=== PATIENT | female | born 1965 | race Caucasian/White ===

== ENCOUNTER 2017-10-06 10:22 | Emergency (ER) | payer BC ==
[2017-10-06 11:27] VITALS: BP 140/91
--- NOTE | 2017-10-06 11:56 | UC ---
Ear Complaint HPI - HPI Summary HPI Summary: right ear pain x 4 days no fever, no cold sx right ear is painful to touch, feels swelling, tender to touch , - History of Current Complaint Chief Complaint: UCEar Stated Complaint: RIGHT EAR/JAW PAIN Time Seen by Provider: 10/06/17 11:23 Hx Obtained From: Patient Hx Last Menstrual Period: 2007 Onset/Duration: Gradual Onset, Lasting Days - 4, Still Present Severity Initially: Moderate Severity Currently: Moderate Aggravating Factors: Other - touch Alleviating Factors: Nothing Associated Signs/Symptoms: Positive: Hearing Loss. Negative: Discharge, Foreign Body Sensation, Trauma to Ear, Swelling @, URI Symptoms - Allergies/Home Medications Allergies/Adverse Reactions: Allergies Allergy/AdvReac Type Severity Reaction Status Date / Time Morphine Allergy See Comment Verified 10/06/17 11:28 clorox Allergy Eyes Uncoded 10/06/17 11:28 Itchy/Swollen/Red/Watery environmental Allergy Eyes Uncoded 10/06/17 11:28 Itchy/Swollen/Red/Watery Home Medications: Home Medications 5 Hdp 200 mg PO DAILY 10/06/17 [History Confirmed 10/06/17] Adrenal B 2 cap PO DAILY 10/06/17 [History Confirmed 10/06/17] Cholecalciferol [Vitamin D] 4,000 unit PO DAILY 10/06/17 [History Confirmed ] Hydrochlorothiazide/Lisinopril 1 tab PO QAM 10/06/17 [History Confirmed 10/06/17 ] Levothyroxine TAB* [Synthroid TAB*] 100 mcg PO DAILY 10/06/17 [History Confirmed 10/06/17] Lisdexamfetamine Dimesylate [Vyvanse] 70 mg PO DAILY 10/06/17 [History Confirmed 10/06/17] Vitamin B Complex TAB* [Complex B-100*] 1 tab PO DAILY 10/06/17 [History Confirmed 10/06/17] PMH/Surg Hx/FS Hx/Imm Hx Endocrine History: Hypothyroidism Cardiovascular History: Hypertension - Surgical History Surgical History: Yes Surgery Procedure, Year, and Place: hysterectomy 2006, cholecystectomy, tonsils ; lap band 2009 - Family History Known Family History: Negative: Diabetes - Social History Alcohol Use: Occasionally Substance Use Type: None Smoking Status (MU): Former Smoker Review of Systems Constitutional: Negative Skin: Negative Eyes: Negative ENT: Ear Ache Respiratory: Negative Cardiovascular: Negative Is Patient Immunocompromised?: No All Other Systems Reviewed And Are Negative: Yes Physical Exam Triage Information Reviewed: Yes Appearance: Well-Appearing, No Pain Distress, Well-Nourished Vital Signs: Initial Vital Signs Temp 98.1 F 10/06/17 11:16 Pulse 85 10/06/17 11:16 Resp 18 10/06/17 11:16 BP 140/91 10/06/17 11:16 Vital Signs Reviewed: Yes Eyes: Positive: Conjunctiva Clear ENT: Positive: Normal ENT inspection, Hearing grossly normal, Pharynx normal, TMs normal, Other - right ear canal : + erythema, swollen, tender, + abscess Ear Complaint Course/Dx - Differential Dx/Diagnosis Provider Diagnoses: abscess right ear canal Discharge - Discharge Plan Condition: Stable Disposition: HOME Prescriptions: Cephalexin CAP* [Keflex CAP*] 500 mg PO TID #30 cap Patient Education Materials: Abscess (ED) Referrals: Dipti Curiel [Primary Care Provider] - 7 Days Additional Instructions: abscess right ear canal
== END 2017-10-06 11:56 | disposition home or self-care (01) ==
LOC: UCCORT 10:22
DX: H60.01 Abscess of right external ear (principal); Z88.5 Allergy status to narcotic agent; E03.9 Hypothyroidism, unspecified; I10 Essential (primary) hypertension; Z90.710 Acquired absence of both cervix and uterus; Z90.49 Acquired absence of other specified parts of digestive tract; Z87.891 Personal history of nicotine dependence
CPT/HCPCS: 99212; G0463

== ENCOUNTER 2018-06-24 15:18 | Emergency (ER) | payer BC ==
--- OUTSIDE RECORDS SUMMARY | 2018-06-24 15:34 | XMS REPORT ---
:1965 External Reference #:[id number] Author Organization [facility] Address [address] [place] [address] [place] [address] Phone [phone] Care Team Providers Name Role Phone Octavio Rice MD Primary Care Physician Unavailable Payers Type Date Identification Numbers Payment Provider Subscriber Commercial Policy Number: [id number] [facility] Meghan Estevez PayID: [id number] [address] [place] [address] Problems Date Description Provider Status Onset: 02/10/2018 Localized, primary osteoarthritis Janett Guzmán M.D. 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 day Vyvanse Active Capsules 70mg Everett-Dereje 000 Dipti covarrubias PA Levothyroxine Active Tablets 100mcg Unknown Sodium 000 Lisinopril-[place] Active Tablets 20-12.5mg Radha chlorothiazide 000 Dipti covarrubias PA Escitalopram Active Tablets 10mg Everett-He Oxalate 000 Dipti covarrubias PA Desloratadine Active Tablets 5mg Everett-He 000 Dipti covarrubias PA Vitamin D Active 2000Iu Unknown 000 Vitamin B Active Unknown 000 Meloxicam Hx Tablets 7.5mg Everett-He 000 - ktor, Alvin Lorenzana PA Medications Administered in Office Medication Date Status Form Strength Qnty SIG Indications Ordering Provider Depomedrol 40MG 06/16/ Administered Injection Janett 2017 Ron Guzmán Triamcinolone 03/24/ Administered Injection Meet (Kenalog) 2017 MD Tushar Triamcinolone 03/24/ Administered Injection Meet (Kenalog) 2017 MD Tushar Depomedrol 40MG 02/10/ Administered Injection Janett 2017 Ron Guzmán Vital Signs Date Vital Result Comment 06/16/2018 Height 64 inches 5'4" Weight 240.00 lb BP Systolic 132 mmHg BP Diastolic 86 mmHg Body Temperature 99.1 F BMI (Body Mass Index) 41.2 kg/m2 03/24/2018 Height 64 inches 5'4" Weight 235.00 lb Heart Rate 88 /min BP Systolic Sitting 114 mmHg BP Diastolic Sitting 80 mmHg Respiratory Rate 16 /min Pain Level 4 BMI (Body Mass Index) 40.3 kg/m2 03/06/2018 Height 64 inches 5'4" Weight 235.00 lb Heart Rate 100 /min BP Systolic 132 mmHg BP Diastolic 84 mmHg Pain Level 1 BMI (Body Mass Index) 40.3 kg/m2 02/10/2018 Height 64 inches 5'4" Weight 240.00 lb Heart Rate 76 /min BP Systolic 132 mmHg BP Diastolic 84 mmHg BMI (Body Mass Index) 41.2 kg/m2 Results Description No Information Procedures Date CPT Code Description Status 06/16/2018 Inject/Drain Joint/Bursa Major W/O US Completed 03/24/2018 Inj/Aspir, Intermediate Joint/Bursa W/ US Completed 03/24/2018 Inj/Aspir, Small Joint/Bursa W/ US Completed 02/10/2018 Inject/Drain Joint/Bursa Major W/O US Completed Encounters Type Date Location Provider CPT E/M Dx Office Visit 03/24/2018 [facility] [place] [address] M19.072 1:00p C.M.A. M20.22 Office Visit 03/06/2018 1:00p [facility] Janett Guzmán M.D. 17631 M25.562 C.M.A. M25.462 M17.12 M19.072 Office Visit 02/10/2018 1:00p [facility] Janett Guzmán M.D. 23029 M25.562 C.M.A. M25.462 M17.12 Plan of Care 06/16/2018 - Janett Guzmán M.D.M25.562 Pain in left kneeFollow up:Follow up: As wiizhnW28.462 Effusion, left kneeM17.12 Unilateral primary osteoarthritis, left knee
[2018-06-24 16:09] VITALS: BP 154/94
--- NOTE | 2018-06-24 16:47 | UC ---
Asthma HPI - HPI Summary HPI Summary: persistent cough for the last 3-4 weeks. without associated fever. cough occasionally producitive of clear sputum. no wheezing. former smoker, and stopped 18 years ago. denies pleuritic pain , some associated dyspnea, burning in the chest associated with coughing - History of Current Complaint Chief Complaint: UCRespiratory Stated Complaint: COUGH,CONGESTION X 1 MONTH Time Seen by Provider: 06/24/18 16:17 Hx Obtained From: Patient Hx Last Menstrual Period: 2007 ?: No Onset/Duration: Lasting Weeks Initial Severity: Moderate Current Severity: Moderate Pain Intensity: 0 Aggravating Factor(s): Weather Change Alleviating Factor(s): Rest Associated Signs and Symptoms: Positive: Negative, Calf Pain, Chest Pain - Allergy/Home Medications Allergies/Adverse Reactions: Allergies Allergy/AdvReac Type Severity Reaction Status Date / Time morphine Allergy Unknown DISTONIC Verified 06/24/18 15:59 REACTION clorox Allergy Eyes Uncoded 06/24/18 15:59 Itchy/Swollen/Red/Watery environmental Allergy Eyes Uncoded 06/24/18 15:59 Itchy/Swollen/Red/Watery Home Medications: Home Medications Desloratadine [Desloratadine Odt] 2.5 mg PO DAILY 06/24/18 [History Confirmed ] PMH/Surg Hx/FS Hx/Imm Hx Previously Healthy: Yes Cardiovascular History: Hypertension Other Psychological History: hx. of adhd - Surgical History Surgical History: Yes Surgery Procedure, Year, and Place: hysterectomy 2006, cholecystectomy, tonsils ; lap band 2009 - Family History Known Family History: Negative: Diabetes - Social History Alcohol Use: Occasionally Substance Use Type: None Smoking Status (MU): Former Smoker Review of Systems Constitutional: Negative Skin: Negative Eyes: Negative ENT: Negative Respiratory: Shortness Of Breath, Cough Cardiovascular: Negative Gastrointestinal: Negative Genitourinary: Negative Motor: Negative Neurovascular: Negative Musculoskeletal: Negative Neurological: Negative Is Patient Immunocompromised?: No All Other Systems Reviewed And Are Negative: Yes Physical Exam Triage Information Reviewed: Yes Appearance: Well-Appearing, No Pain Distress Vital Signs: Initial Vital Signs Temp 37.0 C 06/24/18 16:02 Pulse 90 06/24/18 16:02 Resp 18 06/24/18 16:02 BP 154/94 06/24/18 16:02 Pulse Ox 100 06/24/18 16:02 Vital Signs Reviewed: Yes Eye Exam: Normal Eyes: Positive: Conjunctiva Clear ENT Exam: Normal ENT: Positive: Normal ENT inspection Asthma Course/Dx - Differential Dx/Diagnosis Provider Diagnoses: copd exacerbation Discharge - Sign-Out/Discharge Documenting (check all that apply): Patient Departure All imaging exams completed and their final reports reviewed: Yes - Discharge Plan Condition: Good Disposition: HOME Prescriptions: Tiotropium CAP.INH* [Spiriva CAP.INH*] 1 cap INH DAILY 30 Days #30 cap.inh Patient Education Materials: COPD (Chronic Obstructive Pulmonary Disease) (ED) Referrals: Luis HOYOS,Dipti Clark [Primary Care Provider] - - Billing Disposition and Condition Condition: GOOD Disposition: Home
--- NOTE | 2018-06-24 16:48 | RAD ---
INDICATION: Shortness of breath. Cough and congestion 1 month duration. COMPARISON: No relevant prior exams available on the [facility] [place]. TECHNIQUE: Dual energy PA and routine lateral views of the chest were obtained. REPORT: LEFT epicardial fat pad noted. Elevated lung volumes. No focal pulmonary lesion, compelling alveolar consolidation, pleural effusion, pneumothorax. The heart, pulmonary vasculature, and mediastinal contours are unremarkable. IMPRESSION: #. Stigmata of potential chronic obstructive pulmonary disease. #. No evidence for pneumonia.
--- NOTE | 2018-06-25 08:39 | UC ---
- Progress Note Progress Note: Patient Name: DICK RIVAS Medical Record#: [id number] Ordering Physician: Atif Mo MD Acct.#: [id number] : 1965 Age: 53 Sex: F Location: [facility] Exam Date: 06/24/181631 ADM Status: REG ER Order Information: CHEST PA & LAT 2 VWS Accession Number: [id number] CPT: 83262 INDICATION: Shortness of breath. Cough and congestion 1 month duration. COMPARISON: No relevant prior exams available on the [facility] [place] PACS for comparison. TECHNIQUE: Dual energy PA and routine lateral views of the chest were obtained. REPORT: LEFT epicardial fat pad noted. Elevated lung volumes. No focal pulmonary lesion, compelling alveolar consolidation, pleural effusion, pneumothorax. The heart, pulmonary vasculature, and mediastinal contours are unremarkable. IMPRESSION: #. Stigmata of potential chronic obstructive pulmonary disease. #. No evidence for pneumonia. <Electronically signed by Catalino Hilario MD in OV> 06/24/181644 Dictated By: Catalino Hilario MD Dictated Date/Time: 06/24/181644 Transcribed Date/Time: 06/24/181642 Copy to: CC:Dipti Smith RPA-C; Atif Mo MD Imaging - [facility] Imaging - [facility] [address] [place] [address] ph ([phone]) ph ([phone]) ph ([phone]) This report is only to be considered final once signed by the Provider(s) as displayed in the "<Electronically Signed by >" field (s). Absence of a signature indicates the report is in a draft status and still needs to be finalized. In the event this document was created by someone other than the signing Provider, the individual initiating the document will be listed in the "Entered by:" or "Dictated by:" packer. 1 of 1 Discharge - Sign-Out/Discharge Documenting (check all that apply): Post-Discharge Follow Up All imaging exams completed and their final reports reviewed: Yes - Discharge Plan Condition: Good Disposition: HOME Prescriptions: Tiotropium CAP.INH* [Spiriva CAP.INH*] 1 cap INH DAILY 30 Days #30 cap.inh Patient Education Materials: COPD (Chronic Obstructive Pulmonary Disease) (ED) Referrals: Luis HOYOS,Dipti Clark [Primary Care Provider] - - Billing Disposition and Condition Condition: GOOD Disposition: Home
== END 2018-06-24 17:09 | disposition home or self-care (01) ==
LOC: UCCORT 15:18
DX: J44.1 Chronic obstructive pulmonary disease with (acute) exacerbation (principal); Z88.5 Allergy status to narcotic agent; Z88.8 Allergy status to other drugs, medicaments and biological substances; Z87.891 Personal history of nicotine dependence
CPT/HCPCS: 71046; 99212; G0463

== ENCOUNTER 2018-11-02 13:01 | Emergency (ER) | payer BC ==
--- OUTSIDE RECORDS SUMMARY | 2018-11-02 13:18 | XMS REPORT | Continuity of Care Document ---
:1965 External Reference #:[id number] Author Name Ruthy Mari Care Team Providers Name Role Phone Octavio Rice MD Primary Care Physician Unavailable Payers Type Date Identification Numbers Payment Provider Subscriber Policy Number: [id number] [facility] Meghan Estevez PayID: [id number] [address] [place] [address] Advance Directives Description No Information Available Problems Date Description Provider Status Onset: 02/10/2018 Localized, primary osteoarthritis Janett Guzmán M.D. 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 Currently limited by breathing issues 09/05/18 Allergies, Adverse Reactions, Alerts Date Description Reaction Status Severity Comments 02/10/2018 Morphine Dystonia Active Medications Medication Date Status Form Strength Qnty SIG Indications Ordering Provider Proair HFA 09/05/ Active Aerosol 108(90Base 8.500g 1 pucarroll Lucretia 2017 ) mcg/Act m every 6 MD Rosendo hours as needed Meloxicam 02/10/ Active Tablets 15mg 30tabs 1 by M25.462 Janett 2017 mouth Ramirez, every M.D. day Levothyroxine / Active Tablets 100mcg Unknown Sodium 0000 Lisinopril-[place] / Active Tablets 20-12.5mg Everett- chlorothiazide 0000 ktorDipti PA Escitalopram / Active Tablets 10mg Everett-He Oxalate 0000 ktDipti ring, DOLLY Desloratadine / Active Tablets 5mg Everett-He 0000 ktDipti ring, DOLLY Vitamin D / Active 2000Iu Unknown 0000 Vitamin B / Active Unknown 0000 Aspirin Adult / Active Tablets DR 81mg 1 by Unknown Low Strength 0000 mouth one time per day Phentermine HCL / Active Tablets 37.5mg 1 by Unknown 0000 mouth every day Multivitamin / Active Tablets 1 by Unknown Senior, No Iron 0000 mouth every day Potassium / Active Tablets 99mg 1 by Unknown 0000 mouth one time per day Prednisone 09/05/ Hx Tablets 10mg 240tab 40mg for J67.8 Lucretia 2018 - s macey, MD Rosendo 10/08/ 30mg 2019 daily for 1 week, 20mg daily for 1 week, 10 mg daily for 1 week Vyvanse / Hx Capsules 70mg Everett-He 0000 - ktor, 09/04/ Dipti Elaine, 2017 DOLLY Meloxicam / Hx Tablets 7.5mg Everett-He 0000 - ktor, 02/10/ Dipti Elaine, 2018 PA Atorvastatin / Hx Tablets 10mg 1 by Unknown Calcium 0000 - mouth 09/20/ one time 2018 per day Medications Administered in Office Medication Date Status Form Strength Qnty SIG Indications Ordering Provider Depomedrol 40MG 06/16/ Administered Injection Janett Guzmán M.D. Triamcinolone 03/24/ Administered Injection Meet (Kenalog) 2017 MD Tushar Triamcinolone 03/24/ Administered Injection Meet (Kenalog) 2017 MD Tushar Depomedrol 40MG 02/10/ Administered Injection Janett 2017 Ron Guzmán Immunizations Description No Information Available Vital Signs Date Vital Result Comment 10/09/2018 11:22am Height 64 inches 5'4" Weight 252.00 lb Heart Rate 94 /min BP Systolic Sitting 122 mmHg BP Diastolic Sitting 90 mmHg Respiratory Rate 16 /min O2 % BldC Oximetry 98 % on Ra BMI (Body Mass Index) 43.3 kg/m2 09/05/2018 12:40pm Height 64 inches 5'4" Weight 242.38 lb Heart Rate 78 /min BP Systolic Sitting 132 mmHg Rue large cuff BP Diastolic Sitting 96 mmHg Rue large cuff Respiratory Rate 24 /min O2 % BldC Oximetry 98 % On Ra BMI (Body Mass Index) 41.6 kg/m2 Neck Circumference in inches 16.5 06/16/2018 3:22pm Height 64 inches 5'4" Weight 240.00 lb BP Systolic 132 mmHg BP Diastolic 86 mmHg Body Temperature 99.1 F BMI (Body Mass Index) 41.2 kg/m2 03/24/2018 12:57pm Height 64 inches 5'4" Weight 235.00 lb Heart Rate 88 /min BP Systolic Sitting 114 mmHg BP Diastolic Sitting 80 mmHg Respiratory Rate 16 /min Pain Level 4 BMI (Body Mass Index) 40.3 kg/m2 03/06/2018 1:13pm Height 64 inches 5'4" Weight 235.00 lb Heart Rate 100 /min BP Systolic 132 mmHg BP Diastolic 84 mmHg Pain Level 1 BMI (Body Mass Index) 40.3 kg/m2 02/10/2018 1:19pm Height 64 inches 5'4" Weight 240.00 lb Heart Rate 76 /min BP Systolic 132 mmHg BP Diastolic 84 mmHg BMI (Body Mass Index) 41.2 kg/m2 Results Test Date Facility Test Result H/L Range Note Hypersensitivity 10/02/2018 [facility] Aspergillus 9.4 mg/L < =102 [address] [place] [address] [phone] Micropolyspora faeni IgG Ab <2.0 mg/L <=13.2 2 Thermoactinomyces vulgaris IgG 5.9 mg/L <=23.9 3 Laboratory test 10/02/2018 [facility] C Reactive 7.81 mg/L N < 8.[address] [place] [address] [phone] 1 ADDITIONAL INFORMATION This test was developed and its performance characteristics determined by [facility] in a manner consistent with CLIA requirements. This test has not been cleared or approved by the U.S. Food and Drug Administration. 2 ADDITIONAL INFORMATION This test was developed using an analyte specific reagent. Its performance characteristics were determined by [facility] in a manner consistent with CLIA requirements. This test has not been cleared or approved by the U.S. Food and Drug Administration. 3 ADDITIONAL INFORMATION This test was developed using an analyte specific reagent. Its performance characteristics were determined by [facility] in a manner consistent with CLIA requirements. This test has not been cleared or approved by the U.S. Food and Drug Administration. 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 ankle and foot M20.22 Hallux rigidus, left foot Office Visit 03/06/2018 1:00p [facility] Janett Ramirez, M25.562 Pain in left Of C.M.A. M.D. knee M25.462 Effusion, left knee M17.12 Unilateral primary osteoarthritis, left knee M19.072 Primary osteoarthritis, left ankle and foot Office Visit 02/10/2018 1:00p [facility] Janett Guzmán, M25.562 Pain in left Of C.M.A. M.D. knee M25.462 Effusion, left knee M17.12 Unilateral primary osteoarthritis, left knee Plan of Treatment 10/09/2018 - Lucretia Robbins MDJ67.8 Hypersensitivity pneumonitis due to other organic dustsNew Orders:PFTW/Spirometry Vol Pre/Post Bronchdilat Dlco Complete, Ordered: 10/09/18Follow up:PRNZ87.891 Personal history of nicotine dependence
--- OUTSIDE RECORDS SUMMARY | 2018-11-02 13:18 | XMS REPORT | Continuity of Care Document ---
:1965 External Reference #:[id number] Author Name Antoni Montero D.O. Address [address] [place] [address] Care Team Providers Name Role Phone HCP given Primary Care Physician Unavailable Payers Type Date Identification Numbers Payment Provider Subscriber Policy Number: [id number] Fausto Rivas PayID: [id number] [address] [place] [address] Advance Directives Description No Information Available Problems Date Description Provider Status Onset: 08/17/2016 Essential hypertension Hektor, Dipti, PA Active Onset: 08/17/2016 Obesity Hektor, Dipti, PA Active Onset: 08/17/2016 Hypothyroidism Hektor, Dipti, PA Active Onset: 08/17/2016 Bipolar disorder Hektor, Dipti, PA Active Onset: 08/17/2016 Binge eating disorder Hektor, Dipti, PA Active Onset: 09/15/2016 Binge eating disorder Hektor, Dipti, PA Active Onset: 01/05/2017 Allergic rhinitis Hektor, Dipti, PA Active Onset: 07/27/2017 Non-celiac gluten sensitivity Hektor, Dipti, PA Active Onset: 01/25/2018 Adjustment disorder with mixed emotional Hektor, Dipti, PA Active features Onset: 01/25/2018 Celiac disease Hektor, Dipti, PA Active Onset: 09/07/2018 Extrinsic allergic alveolitis Hektor, Dipti, PA Active Family History Date Family Member(s) Problem(s) Comments Father Asthma Father Arthritis Mother High Blood Pressure Mother Hypercholesterolemia Mother Rheumatoid Arthritis Mother Osteoarthritis Mother Osteopenia Mother Carotid Stenosis Children 2 Siblings 3 2 brothers, 1 sister Social History Type Date Description Comments Sex Unknown Marital Status 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[employer]; 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[employer]; 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 Work Status Currently Working plans to retire in 2019 Tobacco Use Start: Unknown End: Former Cigarette Smoker quit 08/13/00 Unknown Recreational Drug Use Denies Drug Use Tobacco Use Start: Unknown End: Patient is a former quit 1999 Unknown smoker Smoking Status Reviewed: 07/13/18 Patient is a former quit 1999 smoker Exercise Type/Frequency Exercises sporadically Sun Exposure Uses sunscreen Seat Belt/Car Seat Seat Belt Use - Yes Guns in Home No Smoke Alarms Yes smoke alarm Allergies, Adverse Reactions, Alerts Date Description Reaction Status Severity Comments 08/03/2016 Morphine Active dystonic reaction Medications Medication Date Status Form Strength Qnty SIG Indications Ordering Provider Alprazolam 10/05 Active Tablets 0.25mg 90tab 1/2 - 1 tab Krystal, s by mouth Octavio three times M.D. a day as needed for anxiety Amoxicillin/Clavul 10/05 Active Tablets 875-125mg 20tab 1 tab by H66.91 alva Rice Potassium s mouth twice Octavio, a day x10 M.D. days Proair HFA 09/05 Active Aerosol 108(90Bas as Rosendo, e) directed, 1 Lucretia, mcg/Act puff upt to 6 times a day Aspirin Adult Low 09/01 Active Tablets 81mg 30tab 1 tablet by Krystal Strength DR s mouth daily Ron Cunningham Potassium 09/01 Active Tablets 99mg take 1 tablet by mouth daily Symbicort 08/04 Active Aerosol 160-4.5mc 10.20 2 puffs Krystal g/Act 0gm twice a day Ron Cunningham Phentermine HCL 07/11 Active Capsules 37.5mg 30cap 1 cap by F50.81 Krystal s mouth daily Octavio for KrystaDClotilde appetite suppression SR Vitamin W/Out 07/10 Active daily Unknown Iron Meloxicam 02/10 Active Tablets 15mg 30tab 1 tab by Krystal, s mouth every Octavio, day M.D. Escitalopram 01/25 Active Tablets 10mg 90tab 1 tab by F43.23 Krystal Oxalate s mouth every Octavio, day M.D. Miralax 07/26 Active Generic, 1 qd Lisinopril-Hydroch 05/05 Active Tablets 20-25mg 30tab take 1 I10 Silcocarroll, lorothiazide s tablet by Octavio, mouth once M.D. daily for blood pressure Vitamin D3 High 11/03 Active Capsules 1000Unit 2 caps po I10 Hektor, daily DOLLY Resendez Vitamin B-Complex 11/03 Active Tablets I1 Hektor DOLLY Resendez Levothyroxine 06/10 Active Tablets 100mcg 90tab take 1 Silcoff, Sodium s tablet by Octavio, mouth daily M.D. Hypothyrodi sm Desloratadine Active Tablets 5mg 90tab 1 tab by J30.9 Krystal, / s mouth every Octavio, day as M.D. needed Prednisone 09/05 Hx Tablets 10mg 40 mg x 1 Rosendo, week, then Lucretia, - 30 mg x 1 MD 10/03 week, 20 mg x 1 week, then 10 mg x 1 week Atorvastatin 09/01 Hx Tablets 10mg 30tab 1 tablet by Unknown Calcium s mouth every - evening 10/04 Alprazolam 09/01 Hx Tablets 0.5mg 10tab 1 tablet by Unknown s mouth three - times daily 10/05 as directed as needed Amoxicillin/Clavul 07/21 Hx Tablets 875-125mg 20tab 1 tablet by Krystal, anate Potassium s mouth twice Octavio, - daily x 10 M.D. Amoxicillin/Clavul 07/04 Hx Tablets 875-125mg 1 tablet by Unknown anate Potassium mouth twice - daily 07/14 Meloxicam 01/25 Hx Tablets 7.5mg 180ta 1 tab by M79.643 Krystal, bs mouth up to Octavio, - twice daily M.D. 07/11 as needed for pain Probiotic 07/26 Hx Capsules 1 by mouth every day - 08/18 Lisinopril-Hydroch 11/03 Hx Tablets 20-12.5mg 90tab 1 tab by I10 Luis , lorothiazide s mouth every DOLLY Resendez - day 05/05 5-HTP 11/03 Hx Capsules I10 Luis DOLLY Resendez - 01/24 Hydrochlorothiazid 09/15 Hx Tablets 25mg 90tab 1 tab by I10 Luis, s mouth every DOLLY Resendez - day for bp 11/03 Bactrim DS 08/23 Hx Tablets 800-160mg 6tabs 1 tab by Luis, mouth twice DOLLY Resendez - a day x3 Lamotrigine 08/19 Hx Tablets 100mg take 1 tablet po - twice daily 11/02 Amoxicillin 08/03 Hx Tablets 500mg 60tab 2 by mouth J01.90 Krystal, s three times Octavio, - a day for M.D. 08/13 10 days for sinusitis Ibuprofen 08/02 Hx Tablets 200mg taking 4 tablets - with a 07/10 snack for your arthritis pain prn, no more than 2x/day Lamotrigine 07/02 Hx Tablets 100mg 30tab 1 tablet po s daily for - depression08/19 bi-polar Vyvanse 06/11 Hx Capsules 70mg 90cap 1 capsule F50.81 Krystal s by mouth Octavio, - daily for M.D. 07/11 eating disorder, code a Immunizations CPT Code Status Date Vaccine Lot # [id number] Given 08/17/2016 Adacel or Boostrix, TDaP [id number] Vital Signs Date Vital Result Comment 10/05/2018 11:07am BP Systolic 130 mmHg BP Diastolic 86 mmHg Body Temperature 98.2 F Weight 252.00 lb 09/07/2018 2:36pm BP Systolic 142 mmHg BP Diastolic 80 mmHg Heart Rate 85 /min O2 % BldC Oximetry 95 % Body Temperature 97.9 F Height 64 inches 5'4" Weight 249.00 lb BMI (Body Mass Index) 42.7 kg/m2 07/11/2018 4:14pm BP Systolic 140 mmHg BP Diastolic 90 mmHg O2 % BldC Oximetry 98 % Ra Weight 248.00 lb 01/25/2018 8:43am BP Systolic 130 mmHg BP Diastolic 82 mmHg Height 64.5 inches 5'4.50" with sandals Weight 243.00 lb with sandals BMI (Body Mass Index) 41.1 kg/m2 07/27/2017 9:00am BP Systolic 114 mmHg BP Diastolic 76 mmHg Weight 240.00 lb 07/27/2017 8:53am BP Systolic 134 mmHg BP Diastolic 84 mmHg Height 64.25 inches 5'4.25" Weight 232.00 lb BMI (Body Mass Index) 39.5 kg/m2 05/05/2017 2:50pm BP Systolic 146 mmHg BP Diastolic 90 mmHg Weight 239.00 lb 01/05/2017 8:50am BP Systolic 140 mmHg BP Diastolic 80 mmHg Weight 231.00 lb 11/03/2016 8:45am BP Systolic 152 mmHg BP Diastolic 90 mmHg Weight 234.00 lb 09/15/2016 8:51am BP Systolic 148 mmHg BP Diastolic 100 mmHg Weight 234.00 lb with shoes 08/17/2016 8:40am BP Systolic 144 mmHg BP Diastolic 94 mmHg 08/03/2016 4:52pm BP Systolic 160 mmHg BP Diastolic 100 mmHg Body Temperature 98.6 F Height 64 inches 5'4" Weight 242.00 lb BMI (Body Mass Index) 41.5 kg/m2 Results Test Date Facility Test Result H/L Range Note Laboratory test 09/07/2018 [facility] Hemoglobin A1c <pending> finding CMP Panel 09/07/2018 [facility] Albumin <pending> Alt - SGPT <pending> Calcium <pending> Carbon Dioxide <pending> Chloride <pending> Creatinine <pending> Glucose Serum <pending> Alkaline Phosphatase <pending> Potassium <pending> Protien Total <pending> Sodium <pending> Ast - Sgot <pending> BUN - Urea Nitrogen <pending> Laboratory test 09/07/2018 [facility] TSH Thyroid <pending> finding Stimulating Horm Laboratory test 09/24/2017 [facility] TSH (Thyroid Stim 1.71 mcIU/mL N 0.34-5. finding [phone] Horm) 60 Hemoglobin A1c (Glyco HGB) 5.7 % High 4.0-5.6 1 Lipid Profile (Trig/Chol/HDL) 09/24/2017 [facility] Triglycerides 86 mg /dL 2 [phone] Cholesterol 222 mg/dL 3 HDL Cholesterol 64.1 mg/dL 4 LDL Cholesterol 141 mg/dL 5 Comp Metabolic Panel 09/24/2017 [facility] Sodium 140 mmol/L N 133- 145 [phone] Potassium 4.4 mmol/L N 3.5-5.0 Chloride 103 mmol/L N 101-111 Co2 Carbon Dioxide 30 mmol/L N 22-32 Anion Gap 7 mmol/L N 2-11 Glucose 100 mg/dL N 70-100 Blood Urea Nitrogen 16 mg/dL N 6-24 Creatinine 0.98 mg/dL High 0.51-0.95 BUN/Creatinine Ratio 16.3 N 8-20 Calcium 9.4 mg/dL N 8.6-10.3 Total Protein 6.7 g/dL N 6.4-8.9 Albumin 4.2 g/dL N 3.2-5.2 Globulin 2.5 g/dL N 2-4 Albumin/Globulin Ratio 1.7 N 1-3 Total Bilirubin 0.90 mg/dL N 0.2-1.0 Alkaline Phosphatase 87 U/L N 34-104 Alt 16 U/L N 7-52 Ast 19 U/L N 13-39 Egfr Non- 59.1 >60 Egfr 76.1 >60 6 Laboratory test 08/17/2016 [facility] TSH (Thyroid 0.95 mcIU/mL N 0.34-5.60 finding [phone] Stim Horm) CBC Auto Diff 08/17/2016 [facility] White Blood 7.2 10^3/uL N 3.5- 10.8 [phone] Count Red Blood Count 5.69 10^6/uL High 4.0-5.4 Hemoglobin 15.5 g/dL N 12.0-16.0 Hematocrit 47 % N 35-47 Mean Corpuscular Volume 83 fL N 80-97 Mean Corpuscular Hemoglobin 27 pg N 27-31 Mean Corpuscular HGB Conc 33 g/dL N 31-36 Red Cell Distribution Width 14 % N 10.5-15 Abs Neutrophils 4.6 10^3/uL N 1.5-7.7 Abs Lymphocytes 2.0 10^3/uL N 1.0-4.8 Abs Monocytes 0.4 10^3/uL N 0-0.8 Abs Eosinophils 0.1 10^3/uL N 0-0.6 Abs Basophils 0.1 10^3/uL N 0-0.2 Abs Nucleated RBC 0.01 10^3/uL N Granulocyte % 63.7 % N 38-83 Lymphocyte % 28.5 % N 25-47 Monocyte % 5.5 % N 1-9 Eosinophil % 1.5 % N 0-6 Basophil % 0.8 % N 0-2 Nucleated Red Blood Cells % 0.1 N Platelet Count (SEE NOTE) 10^3/uL N 150-450 7 Comp Metabolic Panel 08/17/2016 [facility] Sodium 140 mmol/L N 133- 145 [phone] Potassium 4.2 mmol/L N 3.5-5.0 Chloride 103 mmol/L N 101-111 Co2 Carbon Dioxide 30 mmol/L N 22-32 Anion Gap 7 mmol/L N 2-11 Glucose 104 mg/dL High 70-100 Blood Urea Nitrogen 11 mg/dL N 6-24 Creatinine 0.95 mg/dL N 0.51-0.95 BUN/Creatinine Ratio 11.6 N 8-20 Calcium 9.7 mg/dL N 8.6-10.3 Total Protein 6.9 g/dL N 6.4-8.9 Albumin 4.2 g/dL N 3.2-5.2 Globulin 2.7 g/dL N 2-4 Albumin/Globulin Ratio 1.6 N 1-3 Total Bilirubin 0.80 mg/dL N 0.2-1.0 Alkaline Phosphatase 100 U/L N 34-104 Alt 17 U/L N 7-52 Ast 18 U/L N 13-39 Egfr Non- 61.5 N >60 Egfr 79.1 N >60 8 Urinalysis Profile 08/17/2016 [facility] Urine Color Corina N [phone] Urine Appearance Turbid N Urine Specific [place] 1.020 N 1.010-1.030 Urine pH 5.0 N 5-9 Urine Urobilinogen Negative N Negative Urine Ketones Negative N Negative Urine Protein Negative N Negative Urine Leukocytes 1+ Abnormal Negative Urine Blood Negative N Negative Urine Nitrite Negative N Negative Urine Bilirubin Negative N Negative Urine Glucose Negative N Negative Urine White Blood Cell Trace(0-5/hpf) N Absent Urine Red Blood Cell Absent N Absent Urine Bacteria Absent N Absent Urine Squamous Epithelial Cell Present Abnormal Absent Urine Hyaline Casts Present Abnormal Absent Urine Calcium Oxalate Cryst Present Abnormal Absent Laboratory test 08/17/2016 [facility] Vitamin D Total 35.0 ng/mL N 30 -50 finding [phone] 25(Oh) Hemoglobin A1c (Glyco HGB) 5.5 % N Less than 6.0 9 Lipid Profile 08/17/2016 [facility] Triglycerides 143 mg/dL N 10 (Trig/Chol/HDL) [phone] Cholesterol 209 mg/dL N 11 HDL Cholesterol 59.9 mg/dL N 12 LDL Cholesterol 121 mg/dL N 13 Laboratory test 08/17/2016 [facility] Urine Culture And SEE RESULT 14 finding [phone] Sensitivities BELOW 1 Therapeutic target for the treatment of diabetes mellitus patients is <7% HBA1C, and in selective patients <6.0%. Please refer to [place] [employer] diabetic care guidelines for further information. 2 Desirable: <150 Borderline High: 150-199 High: 200-499 Very High: >500 3 Desirable: <200 Borderline High: 200-239 High: >239 4 Low: <40 Desirable: 40-60 High: >60 5 Desirable: <100 Near Optimal: 100-129 Borderline High: 130-159 High: 160-189 Very High: >189 6 Because ethnic data is not always readily available, this report includes an eGFR for both -Americans and non- Americans. The National Kidney Disease Education Program (NKDEP) does not endorse the use of the MDRD equation for patients that are not between the ages of 18 and 70, are , have extremes of body size, muscle mass, or nutritional status, or are non- or non-. According to the National Kidney Foundation, irrespective of diagnosis, the stage of the disease is based on the level of kidney function: Stage Description GFR(mL/min/1.73 m(2)) 1 Kidney damage with normal or decreased GFR 90 2 Kidney damage with mild decrease in GFR 60-89 3 Moderate decrease in GFR 30-59 4 Severe decrease in GFR 15-29 5 Kidney failure <15 (or dialysis) 7 Platelets clumped. Unable to perform accurate count. 8 Because ethnic data is not always readily available, this report includes an eGFR for both -Americans and non- Americans. The National Kidney Disease Education Program (NKDEP) does not endorse the use of the MDRD equation for patients that are not between the ages of 18 and 70, are , have extremes of body size, muscle mass, or nutritional status, or are non- or non-. According to the National Kidney Foundation, irrespective of diagnosis, the stage of the disease is based on the level of kidney function: Stage Description GFR(mL/min/1.73 m(2)) 1 Kidney damage with normal or decreased GFR 90 2 Kidney damage with mild decrease in GFR 60-89 3 Moderate decrease in GFR 30-59 4 Severe decrease in GFR 15-29 5 Kidney failure <15 (or dialysis) 9 Therapeutic target for the treatment of diabetes Mellitus patients is <7% HBA1C, and in selective patients <6.0%.Please refer to [place] [employer] Diabetic care guidelines for further information. 10 Desirable <150 Borderline high 150-199 High 200-499 Very High >500 11 Desirable <200 Borderline high 200-239 High >239 12 Low <40 Desirable: 40-60 High: >60 13 Desirable: <100 mg/dL Near Optimal: 100-129 mg/dL Borderline High: 130-159 mg/dL High: 160-189 mg/dL Very High: >189 mg/dL 14 SEE RESULT BELOW Name: DICK RIVAS : [address]: Dipti HOYOS Acct: [id number] Unit: [id number] AGE: 51 Location: [facility] Re08/17/16 SEX: F Status: REG REF SPEC: [id number] ADRIANA: 08/17/[address]: Dipti Smith [facility] REQ: [id number] RECD: 08/17/16 STATUS: COMP _ SOURCE: URINE [facility]: ORDERED: Urine Culture Procedure Result Reported Site Urine Culture Final 08/19/16- 0815 ML Organism 1 ESCHERICHIA COLI [place] Count 75-100,000 (Many) CFU/ML Organism 2 NORMAL YOSI [place] Count 1-10,000 (Few) CFU/ML 1. ESCHERICHIA COLI [facility] RX --------- ------ Ampicillin >=32 R Cefazolin <=4 S Cefepime <=1 S Ceftriaxone <=1 S Ciprofloxacin <=0.25 S Gentamicin <=1 S Levofloxacin <=0.12 S Meropenem <=0.25 S Nitrofurantoin <=16 S Tetracycline <=1 S Pipercillin/Tazobactam <=4 S Trimethoprim/Sulfamethoxazole <=20 S Amoxicillin/Clavulanic Acid 16 I Aztreonam <=1 S Contact the Microbiology Department for any additional antibiotic reporting. * [facility] - MAIN LAB ([facility]) . END OF REPORT * ML=Testing performed at Main Lab DEPARTMENT OF PATHOLOGY, [address] [place] [address] Mayo Mckenna M.D. Director [facility] # [id number] Procedures Date Code Description Status 09/30/2017 [id number] Mammogram Completed 09/19/2014 [id number] Colonoscopy Completed Encounters Type Date Location Provider Dx Diagnosis Office Visit 10/05/2018 Main Office Dipti Smith PA H66.91 Otitis media, 11:05a unspecified, right ear J06.9 Acute upper respiratory infection, unspecified J67.8 Hypersensitivity pneumonitis due to other organic dusts Office Visit 09/07/2018 2:15p Main Office Dipti Smith J67.8 Hypersensitivity PA pneumonitis due to other organic dusts F50.81 Binge eating disorder F43.23 Adjustment disorder with mixed anxiety and depressed mood E03.9 Hypothyroidism, unspecified Z12.31 Encntr screen mammogram for malignant neoplasm of breast Z98.84 Bariatric surgery status Office Visit 07/11/2018 4:10p Main Office Dipti Smith PA R06.02 Shortness of breath J20.9 Acute bronchitis, unspecified F50.81 Binge eating disorder Z87.891 Personal history of nicotine dependence Office Visit 01/25/2018 8:40a Main Office Dipti Smith, M79.643 Pain in unspecified PA hand M25.562 Pain in left knee I10 Essential (primary) hypertension F50.81 Binge eating disorder F43.23 Adjustment disorder with mixed anxiety and depressed mood J30.9 Allergic rhinitis, unspecified K90.0 Celiac disease Office Visit 07/27/2017 8:40a Main Office Dipti Smith PA I10 Essential (primary) hypertension F50.81 Binge eating disorder E03.9 Hypothyroidism, unspecified M15.0 Primary generalized (osteo)arthritis K90.41 Non-celiac gluten sensitivity Z12.31 Encntr screen mammogram for malignant neoplasm of breast Office Visit 05/05/2017 2:35p Main Office Dipti Smith PA I10 Essential (primary) hypertension F50.81 Binge eating disorder E66.9 Obesity, unspecified M54.9 Dorsalgia, unspecified Z98.84 Bariatric surgery status Office Visit 01/05/2017 8:40a Main Office Dipti Smith PA I10 Essential (primary) hypertension F31.9 Bipolar disorder, unspecified F50.81 Binge eating disorder E66.9 Obesity, unspecified J30.9 Allergic rhinitis, unspecified Office Visit 11/03/2016 8:40a Main Office Dipti Smith PA I10 Essential (primary) hypertension F31.9 Bipolar disorder, unspecified E66.9 Obesity, unspecified Z68.41 Body mass index (BMI) 40.0-44.9, adult Office Visit 09/15/2016 8:40a Main Office Dipti Smith PA I10 Essential (primary) hypertension F31.9 Bipolar disorder, unspecified E66.9 Obesity, unspecified F50.81 Binge eating disorder Office Visit 08/17/2016 8:45a Main Office Dipti Smith PA I10 Essential (primary) hypertension E66.9 Obesity, unspecified E03.9 Hypothyroidism, unspecified F50.81 Binge eating disorder F31.9 Bipolar disorder, unspecified Z12.31 Encntr screen mammogram for malignant neoplasm of breast Z23 Encounter for immunization Z68.41 Body mass index (BMI) 40.0-44.9, adult Office Visit 08/03/2016 4:30p Main Office Octavio Rice, J01.90 Acute sinusitis, M.D. unspecified R03.0 Elevated blood-pressure reading, w/o diagnosis of htn E66.9 Obesity, unspecified Z68.41 Body mass index (BMI) 40.0-44.9, adult Plan of Treatment Future Appointment(s):01/17/2019 8:00 am - Dipti Smith PA at [id number] - Dipti Smith PAJ67.8 Hypersensitivity pneumonitis due to other organic dustsComments:Hypersensitivity pneumonitis due to unknown exposure at work. Pt to finish prednisone taper and f/u w Dr. Robbins (PFTs to be done) .Follow up:records release for JrbnzwlG67.81 Binge eating disorderComments: Continue phentermine in place of Vyvanse for now. Recheck labs.F43.23 Adjustment disorder with mixed anxiety and depressed moodComments:Continue w lexapro. Monitor.E03.9 Hypothyroidism, unspecifiedComments:Will recheck TSH, continue same dose of levothyroxine in the meantime.Z12.31 Encounter for screening mammogram for malignant neoplasm ofNew Xrays:Mammography, Screening, Bilateral, Scheduled: 10/23/18Comments:Mammogram due--ordered.Z98.84 Bariatric surgery statusComments:Pt to f/u w bariatric surgeon.
--- NOTE | 2018-11-02 13:53 | ED ---
Shortness of Breath - HPI Summary HPI Summary: Pt is a 53 y/o female sent by Dr. Robbins who presents to the ED c/o SOB. She has had SOB with chest tightness and wheezing since 8:30 this morning. Pt did two treatments with her albuterol inhaler which did not greatly improve her symptoms. She denies any fever, congestion, sore throat, or rhinorrhea. Pt was diagnosed with hypersensitivity pneumonitis in August 2018, but was having symptoms since May 2018. She states that the frequency of her HP episodes has been increasing. She recently had water damage in her house and currently has construction happening, which has caused the air to be filled with dust and mold therefore exacerbating her symptoms. She also notes that she was off work 4 days last week with a cold consisting of a mildly wet cough. Pt was initially on Prednisone for 4 weeks which greatly improved her symptoms, and her last dose was 09/02/18. She currently is on Symbicort, and has been on Phentermine/ Vyvanse for weight loss for several years. Pt is a former smoker. - History of Current Complaint Chief Complaint: EDShortnessOfBreath Time Seen by Provider: 11/02/18 13:45 Hx Obtained From: Patient Onset/Duration: Gradual Onset, Still Present Aggrevating Factors: Allergens - dust, mold, etc. Associated Signs & Symptoms: Cough (Productive), Wheezing - Allergy/Home Medications Allergies/Adverse Reactions: Allergies Allergy/AdvReac Type Severity Reaction Status Date / Time morphine Allergy Unknown DISTONIC Verified 11/02/18 13:08 REACTION clorox Allergy Eyes Uncoded 11/02/18 13:08 Itchy/Swollen/Red/Watery environmental Allergy Eyes Uncoded 11/02/18 13:08 Itchy/Swollen/Red/Watery Home Medications: Home Medications ALPRAZolam TAB* [Xanax TAB*] 0.25 mg PO BID PRN 11/02/18 [History Confirmed ] Aspirin EC TAB* [Ecotrin EC Low Dose 81 MG*] 81 mg PO QPM 11/02/18 [History Confirmed 11/02/18] Cholecalciferol (Vitamin D3) [Vitamin D3] 2,000 unit PO DAILY 11/02/18 [History Confirmed 11/02/18] Desloratidine (NF) [Clarinex (NF)] 5 mg PO DAILY 11/02/18 [History Confirmed ] Escitalopram (NF) [Lexapro 10 mg (NF)] 10 mg PO DAILY 11/02/18 [History Confirmed 11/02/18] Lisinopril/HCTZ 20(NF) [Zestoretic 20(NF)] 1 tab PO DAILY 11/02/18 [ History Confirmed 11/02/18] Meloxicam(NF) [Mobic(NF)] 15 mg PO DAILY PRN 11/02/18 [History Confirmed ] Multivitamins/Minerals TAB* [Theragran/minerals TAB*] 1 tab PO DAILY 11/02/18 [ History Confirmed 11/02/18] Phentermine HCl 37.5 mg PO DAILY 11/02/18 [History Confirmed 11/02/18] Potassium 99 mg PO DAILY 11/02/18 [History Confirmed 11/02/18] Vitamin B Complex [Super B-50 Complex] 1 cap PO DAILY 11/02/18 [History Confirmed 11/02/18] PMH/Surg Hx/FS Hx/Imm Hx Endocrine/Hematology History: Reports: Hx Diabetes - PRE, Hx Thyroid Disease Cardiovascular History: Reports: Hx Hypertension Denies: Hx Pacemaker/ICD Respiratory History: Reports: Other Respiratory Problems/Disorders - hypersensitivity pneumonitis History: Denies: Hx Renal Disease Sensory History: Denies: Hx Hearing Aid Psychiatric History: Reports: Hx Depression Denies: Hx Panic Disorder - Cancer History Hx Chemotherapy: No Hx Radiation Therapy: No - Surgical History Surgery Procedure, Year, and Place: hysterectomy 2006, cholecystectomy, tonsils ; lap band 2009 Infectious Disease History: No Infectious Disease History: Denies: Traveled Outside the [place] in Last 30 Days - Family History Known Family History: Negative: Diabetes - Social History Alcohol Use: Occasionally Hx Substance Use: No Substance Use Type: Reports: None Hx Tobacco Use: Yes Smoking Status (MU): Former Smoker Review of Systems Negative: Fever Negative: Sore Throat, Nasal Discharge, Other - congestion Positive: Chest Pain - tightness Positive: Shortness Of Breath, Cough - wet, last week, Other - wheezing All Other Systems Reviewed And Are Negative: Yes Physical Exam - Summary Physical Exam Summary: Appearance: Well appearing, no pain distress Skin: warm, dry, reflects adequate perfusion Head/face: normal Eyes: EOMI, MATTHEW ENT: mucous membranes moist Neck: supple, non-tender Respiratory: CTA, breath sounds present Cardiovascular: tachycardic but regular rhythm, pulses symmetrical Abdomen: non-tender, soft Bowel Sounds: present Musculoskeletal: normal, strength/ROM intact Neuro: normal, sensory motor intact, A&Ox3 Triage Information Reviewed: Yes Vital Signs On Initial Exam: Initial Vitals Temp Pulse Resp BP Pulse Ox 96.7 F 115 16 150/99 100 11/02/18 13:04 11/02/18 13:04 11/02/18 13:04 11/02/18 13:04 11/02/18 13:04 Vital Signs Reviewed: Yes Diagnostics - Vital Signs Vital Signs Temp Pulse Resp BP Pulse Ox 11/02/18 13:04 96.7 F 115 16 150/99 100 - Laboratory Lab Statement: Any lab studies that have been ordered have been reviewed, and results considered in the medical decision making process. Re-Evaluation - Re-Evaluation First Eval Re-Evaluation Time: 15:16 Change: Improved Comment: Pt feels much better after the breathing treatment. Course/Dx - Course Course Of Treatment: Nurse's notes reviewed. Patient with a history of hypersensitivity pneumonitis presents with shortness of breath. She feels she is exacerbated by work currently going on in her home. She was given breathing treatments with relief. She is tachycardic but had clear lungs to begin with and normal O2 sats. She was given steroids and some Benadryl as well which helped. She is most interested in having a note for her insurance company such that she can be reimburse for not staying in the home. This was provided. 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 - Diagnoses Differential Diagnosis/HQI/PQRI: Positive: Bronchitis, COPD Exacerbation, Other - HP, asthma Provider Diagnoses: Hypersensitivity pneumonitis, Dyspnea Discharge - Sign-Out/Discharge Documenting (check all that apply): Patient Departure - Discharge Patient Received Moderate/Deep Sedation with Procedure: No - Discharge Plan Condition: Improved Disposition: HOME Prescriptions: predniSONE TAB* [Deltasone TAB*] 50 mg PO DAILY #3 tab Patient Education Materials: Pneumonitis (ED) Forms: *Gen. Provider Communication, *Work Release Referrals: Luis HOYOS,Dipti Clark [Primary Care Provider] - Additional Instructions: Hypersensitivity pneumonitis can be caused by allergens and may be caused by the work being done in your home. He should avoid this. Call your doctor first thing in the morning to schedule follow-up. They should consider ordering a nebulizer for home use. Avoid smoke and dust. Return if worse, new symptoms or other concerns as discussed. Also consider discontinuing phentermine which may be contributing to symptoms. - Billing Disposition and Condition Condition: IMPROVED Disposition: Home - Attestation Statements Document Initiated by Seema: Yes Documenting Scribe: Diana Carty Provider For Whom Seema is Documenting (Include Credential): Avel Arguelles MD Scribe Attestation: IDiana, scribed for Avel Arguelles MD on 11/02/18 at 1728. Scribe Documentation Reviewed: Yes Provider Attestation: The documentation as recorded by the Diana funez accurately reflects the service I personally performed and the decisions made by me, Avel Arguelles MD Status of Scribe Document: Viewed
[2018-11-02] MEDS ORDERED: predniSONE TAB* 20 MG PO ONE (13:54)
[2018-11-02] MEDS ORDERED: Albuterol/Ipratropium NEB.SOL* Albuterol 2.5 MG/Ipratropium 0.5 MG 3 ML INH ONE (13:54)
[2018-11-02] MEDS ORDERED: diPHENhydraMINE PO* 50 MG PO ONE (13:55)
[2018-11-02] MEDS ORDERED: NS 0.9% 1000 ML** 1,000 ML IV ONE (13:55)
[2018-11-02 15:53] VITALS: BP 158/80
== END 2018-11-02 15:52 | disposition home or self-care (01) ==
LOC: ED 13:01
DX: J67.9 Hypersensitivity pneumonitis due to unspecified organic dust (principal); R06.00 Dyspnea, unspecified; R06.02 Shortness of breath
CPT/HCPCS: 96360; 99283; A9270-GY; J7512

== ENCOUNTER 2018-12-12 16:37 | Emergency (ER) | payer BC ==
--- OUTSIDE RECORDS SUMMARY | 2018-12-12 18:17 | XMS REPORT | Continuity of Care Document ---
:1965 External Reference #:[id number] Author Name Ruthy Mari Care Team Providers Name Role Phone Octavio Rice MD Primary Care Physician Unavailable Payers Date Identification Numbers Payment Provider Subscriber Policy Number: [id number] [facility] Meghan Estevez PayID: [id number] [address] [place] [address] Advance Directives Description No Information Available Problems Date Description Provider Status Onset: 02/10/2018 Localized, primary osteoarthritis Jaentt Guzmán M.D. 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 day as needed Levothyroxine / Active Tablets 100mcg Unknown Sodium 0000 Lisinopril-[place] / Active Tablets 20-12.5mg [place]- chlorothiazide 0000 ktDipti ring PA Escitalopram / Active Tablets 10mg [place]-He Oxalate 0000 ktDipti ring PA Desloratadine / Active Tablets 5mg [place]-He 0000 Dipti covarrubias PA Vitamin D / Active 2000Iu Unknown 0000 [...] Unknown 0000 mouth one time per day Symbicort / Active Aerosol 160-4.5mcg 2 puff Unknown 0000 /Act twice a day Prednisone 09/05/ Hx Tablets 10mg 240tab 40mg for J67.8 [facility] 2018 - s Rosendo choudhury MD 10/08/ 30mg 2019 daily for 1 week, 20mg daily for 1 week, 10 mg daily for 1 week Vyvanse / Hx Capsules 70mg [place]-He 0000 - ktor, 09/04/ Dipti Elaine, 2018 PA Meloxicam / Hx Tablets 7.5mg Everett-He 0000 [...] Available Vital Signs Date Vital Result Comment 11/13/2018 11:22am Height 64 inches 5'4" Weight 263.00 lb Heart Rate 91 /min BP Systolic Sitting 126 mmHg Lue large cuff BP Diastolic Sitting 84 mmHg Lue large cuff Respiratory Rate 24 /min O2 % BldC Oximetry 98 % BMI (Body Mass Index) 45.1 kg/m2 10/09/2018 11:22am Height 64 inches 5'4" Weight [...] Test Result H/L Range Note Hypersensitivity 10/02/2018 [facility] Aspergillus 9.4 mg/L < =102 [address] [place] [address] [phone] Micropolyspora faeni IgG Ab <2.0 mg/L <=13.2 2 Thermoactinomyces vulgaris IgG 5.9 mg/L <=23.9 3 Laboratory test 10/02/2018 [facility] C Reactive 7.81 mg/L N < 8.[address] [place] [address] [phone] 1 ADDITIONAL INFORMATION This test was developed and its performance characteristics determined by [facility] in a manner consistent with CLIA requirements. This test has not been cleared or approved by the U.S. Food and Drug Administration. 2 ADDITIONAL INFORMATION This test was developed using an analyte specific reagent. Its performance characteristics were determined by [facility] in a manner consistent with CLIA requirements. This test has not been cleared or approved by the U.S. Food and Drug Administration. 3 ADDITIONAL INFORMATION This test was developed using an analyte specific reagent. Its performance characteristics were determined by [facility] in a manner consistent with CLIA requirements. This test has not been cleared or approved by the U.S. Food and Drug Administration. Test Performed by: [facility] - [address] [address] Procedures Date Code Description Status 10/31/2018 07071 Diffusing Capacity Completed 10/31/2018 78689 Plethysmography Determination Lung Volumes & Per Airway Completed Resist 10/31/2018 07322 Pulmonary Function><Bronchodil Completed 06/16/201871339 Inject/Drain Joint/Bursa Major W/O US Completed 03/24/2018 Inj/Aspir, Intermediate Joint/Bursa W/ US Completed 03/24/2018 Inj/Aspir, Small Joint/Bursa W/ US Completed 02/10/2018 Inject/Drain Joint/Bursa Major W/O US Completed Encounters Type Date Location Provider Dx Diagnosis Office Visit 10/09/2018 [facility] Kasey Carlson67.8 Hypersensitivity 11:45a Sleep Services Of pneumonitis due to Cooling 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 ankle and foot M20.22 Hallux rigidus, left foot Office Visit 03/06/2018 1:00p [facility] Janett Guzmán M25.562 Pain in left Of C.M.A. M.D. knee M25.462 Effusion, left knee M17.12 Unilateral primary osteoarthritis, left knee M19.072 Primary osteoarthritis, left ankle and foot Office Visit 02/10/2018 1:00p [facility] Janett Guzmán M25.562 Pain in left Of C.M.A. M.D. knee M25.462 Effusion, left knee M17.12 Unilateral primary osteoarthritis, left knee Plan of Treatment Future Appointment(s):02/07/2019 9:15 am - Lucretia Robbins MD at [facility]11/13/2018 - Lucretia Robbins MDJ67.9 Hypersensitivity pneumonitis due to unspecified organic dustFollow up:3 months
[2018-12-12 18:28] VITALS: BP 154/91
--- NOTE | 2018-12-12 18:43 | UC ---
Throat Pain/Nasal Ahsan HPI - HPI Summary HPI Summary: 53 yo female presents with 2 complaints: 1) Sinus pain/pressure/congestion, productive cough, and post nasal drip for the last 3-4 days. She has not taken anything OTC for her symptoms. Denies fever , chills, sore throat, SOB, chest pain 2) Left knee pain. She tells me that she has chronic left knee pain and knows she has arthritis. She has seen Dr. Guzmán in the past for this. About a week ago pt twisted her left knee and has been more painful since that time. She has not called Dr. Guzmán. She is ambulatory without assistance or limp. Has been taking ibuprofen with mild relief. Denies numbness or tingling. - History of Current Complaint Chief Complaint: UCRespiratory Stated Complaint: SINUS CONGESTION Time Seen by Provider: 12/12/18 18:43 Hx Obtained From: Patient Hx Last Menstrual Period: 2007 Onset/Duration: Gradual Onset Severity: Moderate Pain Intensity: 5 Pain Scale Used: 0-10 Numeric - Allergies/Home Medications Allergies/Adverse Reactions: Allergies Allergy/AdvReac Type Severity Reaction Status Date / Time morphine Allergy Unknown DISTONIC Verified 12/12/18 18:28 REACTION clorox Allergy Eyes Uncoded 12/12/18 18:28 Itchy/Swollen/Red/Watery environmental Allergy Eyes Uncoded 12/12/18 18:28 Itchy/Swollen/Red/Watery PMH/Surg Hx/FS Hx/Imm Hx - Additional Past Medical History Additional PMH: "lung disease" Endocrine History: Hypothyroidism Cardiovascular History: Hypertension Psychological History: Anxiety, Depression - Surgical History Surgical History: Yes Surgery Procedure, Year, and Place: hysterectomy 2006, cholecystectomy, tonsils ; lap band 2009 - Family History Known Family History: Negative: Diabetes - Social History Occupation: Employed Full-time Lives: With Family Alcohol Use: Occasionally Substance Use Type: None Smoking Status (MU): Former Smoker Review of Systems All Other Systems Reviewed And Are Negative: Yes Constitutional: Positive: Negative Skin: Positive: Negative Eyes: Positive: Negative ENT: Positive: Nasal Discharge, Sinus Congestion, Sinus Pain/Tenderness Respiratory: Positive: Cough Cardiovascular: Positive: Negative Gastrointestinal: Positive: Negative Neurovascular: Positive: Negative Psychological: Positive: Negative Physical Exam - Summary Physical Exam Summary: GENERAL: NAD. WDWN. No pain distress. SKIN: No rashes, sores, lesions, or open wounds. HEENT: Head: AT/NC Eyes: EOM intact. Conjunctiva clear without inflammation or discharge. Ears: Hearing grossly normal. TMs intact, no bulging, erythema, or edema. Nose: Nasal mucosa pink and moist. NTTP maxillary and frontal sinus. Throat: Posterior oropharynx without exudates, erythema, or tonsillar enlargement. Uvula midline. NECK: Supple. Nontender. No lymphadenopathy. CHEST: CTAB. No r/r/w. No accessory muscle use. Breathing comfortably and in no distress. CV: RRR. Without m/r/g. Pulses intact. Cap refill <2seconds MSK: LEFT KNEE: FROM. Mild edema. Strength 5/5. No obvious bony deformities. No patella apprehension. Negative Pedro, A/P drawer, Abdirahman, and varus/valgus stress. NEURO: Alert. PSYCH: Age appropriate behavior. Triage Information Reviewed: Yes Vital Signs: Initial Vital Signs Temp 97.5 F 12/12/18 18:21 Pulse 81 12/12/18 18:21 Resp 18 12/12/18 18:21 BP 154/91 12/12/18 18:21 Pulse Ox 100 12/12/18 18:21 Laboratory Tests 12/12/18 19:15 Influenza A (Rapid) Negative Influenza B (Rapid) Negative Vital Signs Reviewed: Yes Throat Pain/Nasal Course/Dx - Course Course Of Treatment: XR knee: No radiologist reading after 1800, therefore wet read by myself is negative for fx, but does have some arthritis worst on medial aspect. POC flu negative. Discussed viral vs bacterial causes of her symptoms and pt prefers to be on antibiotics at this time. Regarding her knee pain, I suspect this is an aggravation of her existing arthritis and advised her to schedule a f /u appt with Dr. Guzmán. - Differential Dx/Diagnosis Provider Diagnosis: Sinusitis, Left knee pain Discharge - Sign-Out/Discharge Documenting (check all that apply): Patient Departure All imaging exams completed and their final reports reviewed: No - Discharge Plan Condition: Stable Disposition: HOME Prescriptions: Amoxicillin/Clavulanate TAB* [Augmentin TAB 875*] 875 mg PO BID #14 tab Patient Education Materials: Sinusitis (ED) Forms: *Work Release Referrals: Luis HOYOS,Dipti Clark [Primary Care Provider] - Additional Instructions: If you develop a fever, shortness of breath, chest pain, new or worsening symptoms - please call your PCP or go to the ED. Your blood pressure was high at todays visit. Please see your primary provider within 4 weeks for recheck and re-evaluation. Please follow up with Dr. Guzmán regarding your knee arthritis - Billing Disposition and Condition Condition: STABLE Disposition: Home
[2018-12-12 19:27] LABS: Influenza A Molecular NEGATIVE (Negative); Influenza B Molecular NEGATIVE (Negative)
--- NOTE | 2018-12-13 12:40 | UC ---
- Progress Note Progress Note: KNEE XRAY REVIEWED: Moderate osteoarthritis. Potential patellar tendinopathy. Correlate with clinical assessment and consider ultrasound or MRI for further evaluation if deemed appropriate. PT CALLED. NAME AND VERIFIED. NOTIFIED OF ABOVE FINDINGS. SHE WILL FOLLOW- UP WITH ORTHO ADVISED. Course/Dx - Diagnoses Provider Diagnoses: Sinusitis, Left knee pain Discharge - Sign-Out/Discharge Documenting (check all that apply): Post-Discharge Follow Up All imaging exams completed and their final reports reviewed: Yes - Discharge Plan Condition: Stable Disposition: HOME Prescriptions: Amoxicillin/Clavulanate TAB* [Augmentin TAB 875*] 875 mg PO BID #14 tab Patient Education Materials: Sinusitis (ED) Forms: *Work Release Referrals: Luis HYOOS,Dipti Clark [Primary Care Provider] - Additional Instructions: If you develop a fever, shortness of breath, chest pain, new or worsening symptoms - please call your PCP or go to the ED. Your blood pressure was high at todays visit. Please see your primary provider within 4 weeks for recheck and re-evaluation. Please follow up with Dr. Guzmán regarding your knee arthritis - Billing Disposition and Condition Condition: STABLE Disposition: Home
== END 2018-12-12 19:50 | disposition home or self-care (01) ==
LOC: UCEAST 16:37
DX: J32.9 Chronic sinusitis, unspecified (principal); M25.562 Pain in left knee; Z87.891 Personal history of nicotine dependence; Z88.5 Allergy status to narcotic agent; Z91.09 Other allergy status, other than to drugs and biological substances; Z88.8 Allergy status to other drugs, medicaments and biological substances
CPT/HCPCS: 99212; G0463

== ENCOUNTER 2019-02-22 08:14 | Inpatient (IN) | payer BC ==
--- NOTE | 2019-02-09 17:23 | HP ---
Amended report to enter cosigning physician. HISTORY AND PHYSICAL: DATE OF ADMISSION/SURGERY: 02/22/19 DATE OF OFFICE VISIT: 02/09/19 SURGEON: Janett Guzmán MD* (dictated by DOLLY Del Toro). PROCEDURE: Left total knee arthroplasty. CHIEF COMPLAINT: Left knee pain. HISTORY OF PRESENT ILLNESS: Ms. Estevez is a 53-year-old female with end-stage osteoarthritis of the left knee. She has failed conservative treatment and elected to proceed with a left total knee arthroplasty. PAST MEDICAL HISTORY: Hypertension; hypothyroidism; diabetes, diet-controlled; and hypersensitivity pneumonitis. PAST SURGICAL HISTORY: Tonsillectomy, tubal ligation, hysterectomy, cholecystectomy, and Lap-Band. CURRENT MEDICATIONS: 1. ProAir 1 puff every 6 hours as needed. 2. Meloxicam daily. 3. Levothyroxine 100 mcg a day. 4. Lisinopril/hydrochlorothiazide 20/12.5 mg a day. 5. Escitalopram 10 mg a day. 6. Desloratadine 5 mg a day. 7. Vitamin D. 8. Vitamin B. 9. Phentermine 37.5 mg daily. 10. Multivitamin. 11. Potassium. 12. Symbicort 2 puffs twice a day. ALLERGIES: To MORPHINE causing a dystonic reaction. FAMILY HISTORY: Coronary artery disease, cancer, asthma, hypertension, and RA. SOCIAL HISTORY: She is a 53-year-old female. She lives with her . She does not smoke or use drugs. REVIEW OF SYSTEMS: A complete 14-point review of systems was reviewed with the patient. It was positive for hypothyroidism, some occasional shortness of breath, and diabetes which is currently being controlled with diet. She denies history of DVT, PE, hepatitis, HIV, or anesthesia problems. PHYSICAL EXAMINATION GENERAL: She is well developed, well nourished, in no acute distress. VITAL SIGNS: She stands 64 inches tall, weighs 257 pounds. Her blood pressure is 147/90, her heart rate is 72. HEENT: Normocephalic, atraumatic. NECK: Supple. No palpable lymph nodes. PULMONARY: The lungs are clear to auscultation bilaterally. CARDIO: Regular rate and rhythm. Strong S1, S2. ABDOMEN: Soft, nontender, nondistended. NEUROLOGICAL: She is alert and oriented x3. MUSCULOSKELETAL: Left lower extremity: The skin is intact. There are no open wounds or abrasions. There is a moderate effusion of the left knee joint. Range of motion is 5 to 120 degrees of flexion with patellofemoral crepitus. She has some tenderness along the medial joint line. ASSESSMENT AND PLAN: Ms. Estevez is a 53-year-old female with end-stage osteoarthritis of the left knee. She has failed conservative treatment and elected to proceed with a left total knee arthroplasty. The surgery is scheduled for 02/22/[address]án[address] Guzmán discussed the risks and benefits of the surgery at today's visit and all of her questions were answered. She will follow up with Dr. Guzmán 2 weeks after the surgery. DOLLY DEL TORO [id number]/CPS #: [id number] MTDD
[~2019-02-22 08:14] MED LIST: Acetaminophen TAB* 325 MG PO ONE; Buffered Lidocaine 1% SYRIN* 1 ML/SYRINGE INTRADERM ONE; Famotidine TAB* 20 MG PO ONE; Gabapentin CAP(*) 300 MG PO ONE; Lactated Ringers 1000 ML Bag* 1,000 ML IV SCH; Metoclopramide IV* 5 MG/ML 2 ML VIAL IV SLOW PU ONE; Scopolamine 1.5 mg* PATCH TRANSDERM SCH; Tranexamic Acid 1,000 MG in NS 0.9% 50 ML* (outpatient use) IV SCH; celeCOXIB CAP* 200 MG PO ONE
[2019-02-22] MEDS ORDERED: Metoclopramide IV* 5 MG/ML 2 ML VIAL ONE (08:46)
[2019-02-22] MEDS ORDERED: Acetaminophen TAB* 325 MG ONE (08:47)
[2019-02-22] MEDS ORDERED: Famotidine TAB* 20 MG ONE (08:47)
[2019-02-22] MEDS ORDERED: Scopolamine 1.5 mg* PATCH ONE (08:47)
[2019-02-22] MEDS ORDERED: celeCOXIB CAP* 200 MG ONE (08:47)
[2019-02-22] MEDS ORDERED: Buffered Lidocaine 1% SYRIN* 1 ML/SYRINGE INTRADERM ONE (08:48)
[2019-02-22] MEDS ORDERED: ceFAZolin 2 GM PREMIX in ORs 2 GM/50 ML BAG ONE (08:48)
[2019-02-22] MEDS ORDERED: Gabapentin CAP(*) 300 MG ONE (08:49)
[2019-02-22] MEDS ORDERED: Levalbuterol 0.63MG/3ML NEB* UNIT OF USE INH ONE (09:02)
[2019-02-22] MEDS ORDERED: fentaNYL* 50 MCG/ML 2 ML VIAL (100 MCG VIAL) IV PRN (09:03)
[2019-02-22] MEDS ORDERED: DiMENhydriNATE IV* 50 MG/ML VIAL IV PUSH PRN (09:03)
[2019-02-22] MEDS ORDERED: PROCHLORPERAZINE INJ 5 MG/ML 2 ML VIAL IV PRN (09:03)
[2019-02-22] MEDS ORDERED: HYDROmorphone INJ1* 1 MG/ML SYRINGE IV PRN (09:03)
[2019-02-22] MEDS ORDERED: Naloxone* 0.4 MG/ML 1 ML VIAL IV PRN (09:03)
[2019-02-22] MEDS ORDERED: fentaNYL* 50 MCG/ML 2 ML VIAL (100 MCG VIAL) ONE ×2 (09:40→14:29)
[2019-02-22] MEDS ORDERED: KETAMINE HCL* 50 MG/ML 10 ML VIAL ONE (09:40)
[2019-02-22] MEDS ORDERED: Midazolam* 1 MG/ML 10 ML VIAL (10 MG) ONE (09:41)
[2019-02-22] MEDS ORDERED: ROPIVACAINE 5 MG/ML 30 ML BTL (0.5%) ONE (10:25)
[2019-02-22] MEDS ORDERED: HYDROmorphone INJ1* 1 MG/ML SYRINGE ONE (11:03)
[2019-02-22] MEDS ORDERED: PROCHLORPERAZINE INJ 5 MG/ML 2 ML VIAL ONE (13:00)
[2019-02-22] MEDS ORDERED: Phenylephrine 10 MG/ML VIAL* 1 ML VIAL ONE (13:00)
[2019-02-22] MEDS ORDERED: EPHEDrine (Pressors)* 50 MG/ML VIAL ONE (13:00)
[2019-02-22] MEDS ORDERED: Propofol* 10 MG/ML 20 ML BTL ONE (13:00)
[2019-02-22] MEDS ORDERED: Lidocaine 2% PF * 5 ML VIAL ONE (13:00)
[2019-02-22] MEDS ORDERED: Ondansetron INJ* 2 MG/ML VIAL ONE (13:00)
[2019-02-22] MEDS ORDERED: Dexamethasone IV* 4 MG/ML 1 ML (4 MG) ONE (13:00)
[2019-02-22] MEDS ORDERED: Bupivacaine 0.5% SDV PF* 30ML VIAL ONE (13:00)
[2019-02-22] MEDS ORDERED: Bisacodyl SUPP* 10 MG SUPP PR PRN (13:40)
[2019-02-22] MEDS ORDERED: oxyCODONE/Acetamin 5/325 MG* TAB PO PRN (13:40)
[2019-02-22] MEDS ORDERED: diPHENhydraMINE IV* 50 MG/ML 1 ml VIAL (BENADRYL) IV PRN (13:40)
[2019-02-22] MEDS ORDERED: Ondansetron TAB* 4 MG PO PRN (13:40)
[2019-02-22] MEDS ORDERED: Magnesium Hydroxide LIQ* 30 ML UDC PO PRN (13:40)
[2019-02-22] MEDS ORDERED: Cyclobenzaprine TAB* 10 MG PO PRN (13:40)
[2019-02-22] MEDS ORDERED: traMADol TAB* 50 MG PO PRN (13:40)
[2019-02-22] MEDS ORDERED: Polyethylene Glycol 3350* 17 GM PACKET PO PRN (13:40)
[2019-02-22] MEDS ORDERED: Ondansetron INJ* 2 MG/ML VIAL IV PRN (13:40)
[2019-02-22] MEDS ORDERED: HYDROmorphone INJ1* 1 MG/ML SYRINGE IV SLOW PU PRN (13:45)
[2019-02-22] MEDS ORDERED: Albuterol HFA INHALER* 8 gm MDI INH PRN (13:46)
[2019-02-22] MEDS ORDERED: traMADol TAB* 50 MG ONE (14:30)
[2019-02-22] MEDS: Lactated Ringers 1000 ML Bag* 1,000 ML IV SCH ×2 (15:15→23:50)
[2019-02-22] MEDS: Acetaminophen TAB* 325 MG PO SCH ×2 (15:16→21:09)
--- NOTE | 2019-02-22 15:40 | OP ---
Operative Report - Blank - Operative Report Date of Operation: 02/22/19 Note: DICK RIVAS 1965 Date of Surgery: 02/22/19 Janett Guzmán MD Marketing Intelligence Analyst: Ellyn ALBERTO did help throughout the procedure with preparation of the knee, wound retraction, manipulation of the knee, and wound closure. Anesthesiologist: Alyse Marcano MD Anesthesia Type: Spinal Preoperative Diagnosis: Left severe degenerative osteoarthritis of the knee Postoperative Diagnosis: As above Procedure Performed: Left Total Knee Arthroplasty Tourniquet time: 48 minutes Complications: None Specimen: Bone and cartilage from the left knee joint sent to pathology. Hardware Used: Cemented Alicea and Nephew total knee hardware was used - For the femur a size 5 left narrow oxinium legion posterior stabilized femoral component, for the tibia a size 3 left kayleen II tibial baseplate, for the insert a size 9mm 3-4 posterior stabilized articular polyethylene insert, and for the patella a size 32 3-peg all poly patella. Brief History/Indication: DICK RIVAS was known in clinic and had a history of severe left knee pain and swelling. She failed conservative treatment with anti-inflammatories, pain pills, intra-articular injections and physical therapy. She elected to undergo left total knee arthroplasty due to continued pain and decreased quality of life. Radiographs showed severe end stage osteoarthritis of the knee with bone on bone contact. Informed consent was obtained from the patient. She understood the risks of surgery included but were not limited to: bleeding, infection, damage to nearby structures, intraoperative fracture, nerve palsy, failure of the hardware, early loosening, knee stiffness or loss of motion, anesthesia complications, stroke, heart attack , blood clot and . She wished to proceed. Intra-Operative Findings: Intraoperatively the patient was noted to have severe loss of cartilage in all 3 compartments of the knee. Description of the Procedure: DICK RIVAS was identified in the preanesthesia unit. Her left knee was marked as the correct operative side. Informed consent was signed and placed in the chart. The patient was taken to the operating room and placed under anesthesia without complication. A mitchell catheter was placed. A tourniquet was placed on the left thigh. The left lower extremity was prepped and draped in the usual sterile fashion. Preoperative time-out was made to correctly identify the patient, side and site. Appropriate intraoperative antibiotics were given within one hour of incision. Tourniquet was inflated. A midline incision was made and carried sharply down to the extensor mechanism. A new 10 blade was used to make a standard medial parapatellar arthrotomy. The patella was subluxed laterally. Electrocautery was used to dissect soft tissue off the superomedial tibia to the midsagittal plane. The knee was flexed up. The anterior horn of the lateral meniscus and the ACL were sharply incised. A drill was used to enter the distal femur. The intramedullary distal femoral cutting guide was pinned on the distal femur. The oscillating saw was used to make the distal femoral cut. The external rotation guide was pinned on the distal femur and the distal femur was sized to a size 5. The size 5 multi-cutting jig was pinned on the distal femur. The oscillating saw was used to make the appropriate 4 chamfer cuts. Next the PCL was completely released. The extramedullary tibial cutting guide was pinned on the proximal tibia and the oscillating saw was used to make the proximal tibial cut perpendicular to the mechanical axis of the tibia. The bone was carefully removed. The knee was brought out into full extension. The spacer block was placed and had excellent fit with the knee in full extension. The medial and lateral ligaments were well balanced. The flexion and extension gaps were well balanced. The knee was flexed up. Lamina assistant front end manager was placed both medially and laterally. Any remaining meniscus was removed with electrocautery. Curved osteotome was used to remove any posterior osteophytes. The tibial tray and drop ramya were placed and confirmed a satisfactory tibial cut. The size 5 left narrow femoral trial was impacted onto the distal femur. This trial had excellent fit and stability. The box for the posterior stabilized implant was prepared using a box cut osteotome and a reamer. Next a tibial tray trial and 9 mm insert trial was placed. The knee was taken through a range of motion and had full extension to 130 degrees of flexion. Patellofemoral tracking was satisfactory. The patella was inverted and sized to a size 32. Three peg holes were drilled through the size 32 drill guide. The trial patella was placed and the knee was taken through a range of motion. There was satisfactory patellofemoral tracking. All trials were removed. The tibia was subluxed anteriorly and sized to a size 3. The proximal tibial was prepared with a size 3 keel punch. All bony cut surfaces were irrigated with sterile saline and dried. Final implants were cemented into place starting with the tibia, followed by the femur, and last the patella. A 9 mm insert trial was placed and the knee was brought into full extension. Tourniquet was turned down and the knee was copiously irrigated with sterile saline. Electrocautery was used to obtain meticulous hemostasis. Once the cement had fully cured, the insert trial was removed. Any excess cement was removed from around the hardware and capsule. Final insert chosen was a 9 mm posterior stabilized Kayleen II articular insert size 3-4. Stability of the insert was checked and noted to be stable. The extensor mechanism was closed using number 1 vicryls. The rest of the incision was closed in a layered fashion using 0 and 2-0 vicryls. The skin was closed using 3-0 nylon suture. Sterile xeroform, 4x4s and webril were used to cover the incision. Lokesh wrap and cold pack were used to cover the dressings. The patients anesthesia was reversed without difficulty. She was taken to the PACU in stable condition. Intended weight-bearing will be as tolerated.
[2019-02-22] MEDS: oxyCODONE/Acetamin 5/325 MG* TAB PO PRN ×2 (16:15→20:53)
[2019-02-22] MEDS: ceFAZolin 1 GM ADVAN(*) 1 GM in NS 0.9% 50 ML* 50 ML IVPB SCH (18:11)
[2019-02-22] MEDS: Mometasone/Formoter 200/5 MDI INH SCH (20:33)
[2019-02-22] MEDS: Docusate CAP* 100 MG PO SCH (20:51)
[2019-02-22] MEDS: Magnesium Hydroxide LIQ* 30 ML UDC PO SCH (21:18)
--- NOTE | 2019-02-22 22:59 | CONS ---
CONSULTATION REPORT: DATE OF ADMISSION: 02/22/19 DATE OF CONSULT: 02/22/19 REQUESTING PHYSICIAN IN CONSULT: Dr. Guzmán. ATTENDING PHYSICIAN: Dr. Kimball (dictated by Elham Spangler, STEPHANIA) REASON FOR CONSULT: Co-medical management of hypertension. HISTORY OF PRESENT ILLNESS: I will refer you to DOLLY Hawkins's H and P dictated on 02/09/19 for complete details, but in short, Ms. Estevez is a 53- year-old female with a past medical history significant for hypertension, hypothyroid, diabetes, hypersensitivity pneumonitis; who presented to [facility] for an elective left total knee replacement. PAST MEDICAL HISTORY: 1. Hypertension. 2. Hypothyroid. 3. Diabetes/diet controlled. 4. Hypersensitivity pneumonitis. PAST SURGICAL HISTORY: 1. Tonsillectomy. 2. Tubal ligation. 3. Hysterectomy. 4. Cholecystectomy. 5. Lap-Band. HOME MEDICATIONS: 1. Vitamin B complex 1 cap p.o. q.a.m. 2. Potassium 99 mg p.o. q.a.m. 3. Phentermine 3.75 mg p.o. q.a.m. 4. Multivitamin 1 tab p.o. q.a.m. 5. Meloxicam 15 mg p.o. daily p.r.n. 6. Lisinopril/hydrochlorothiazide 1 tab p.o. daily. 7. Levothyroxine 100 mcg p.o. q.a.m. 8. Lexapro 10 mg p.o. q.a.m. 9. Clarinex 5 mg p.o. q.a.m. 10. Vitamin D3 2000 units p.o. daily. 11. Symbicort 2 puffs inhalations b.i.d. 12. Albuterol inhalation 1 puff inhalation q.6 hours p.r.n. ALLERGIES: MORPHINE.. FAMILY HISTORY: The patient's family history is significant for CAD, cancer, asthma, hypertension, RA. SOCIAL HISTORY: The patient lives with her . She is independent in her ADLs. She denies smoking. She denies alcohol use. She denies drug use. REVIEW OF SYSTEMS: The patient reports left knee pain "6"/10. The patient denies chest pain, shortness of breath, abdominal pain, nausea, numbness and tingling, dizziness. A 14-point review of systems was completed. All others were negative. PHYSICAL EXAM: General: Ms. Estevez is a 53-year-old patient who is lying on bed in short- stay surgical unit. Appears to be in no acute distress. Appears stated age. Vital Signs: Temp 97.4, HR 82, RR 16, O2 saturation 97% on room air, BP 130/ 67. HEENT: EOMs intact. PERRLA. Oral mucosa is moist without lesions. Posterior pharynx is clear. Cardiac: S1, S2 present. No murmurs, rubs, or gallops. Regular rate and rhythm. Respiratory: Lungs are clear to auscultation. No wheezes, rhonchi, or rubs. Good aeration. Abdomen: Soft, nontender. Bowel sounds normoactive. Extremities: No clubbing or cyanosis. No edema. Pedal pulses are 2+ bilaterally. Moves all extremities well. Musculoskeletal: Patient reports pain to left knee. No other pain or deformities. Skin: Skin is intact. Dressing to left knee is clean, dry, and intact. Neuro: Neuro exam is grossly intact. No focal deficit or weakness. DIAGNOSTIC STUDIES/LAB DATA: CBC obtained 02/09/19, WBC 8.3, hemoglobin 14.8, hematocrit 45, platelet 219. BMP obtained 02/09/19, sodium 142, potassium 3.9, chloride 107, carbon dioxide 29, BUN 13, creatinine 0.90. ASSESSMENT AND PLAN: Ms. Estevez is a 53-year-old female with past medical history significant for hypertension, hypothyroid, diabetes, hypersensitivity pneumonitis; who presented to [facility] today for an elective left total knee replacement. The patient is placed on short-day surgical. 1. Status post left total knee replacement: Postop day 0. The patient reports she was able to ambulate to the bathroom and back. The patient reports pain is controlled with current pain regimen. I will defer management of this to the ortho team. Bowel medications and pain meds have been ordered by the ortho team. 2. Hypertension: The patient has a history of hypertension. She is on lisinopril/hydrochlorothiazide at home. Given her recent surgery, I would recommend holding her lisinopril/hydrochlorothiazide tomorrow and reassessing. It can be restarted if patient continues to be normotensive. 3. Hypothyroid: I will continue patient's levothyroxine as same. 4. Diabetes: The patient reports her diabetes is diet controlled. The patient 's POC glucose was 124 this morning. I do not believe, the patient will need a sliding scale insulin at this time. 5. Hypersensitivity pneumonitis: The patient reports to be well controlled as long as she refrains from aggravating substances. The patient should continue her inhalers as needed. 6. Potassium supplementation: It should be noted that patient takes potassium 99 mg at home. She reports this is [id number] dose. I am going to hold this for now and there is a BMP ordered for tomorrow. I would recommend replacing with the potassium we have here formulary if needed and then patient can resume her potassium at home. 7. FEN: The patient was ordered a diet by the ortho team. 8. Phentermine: The patient is on phentermine at home, which is a prescription use for further weight loss. This also does carry side effect as rapid or irregular heartbeat. Therefore, given patient's recent surgery, I would recommend holding that and she can resume at home. I would also recommend she follow up with her primary care regarding this supplement. 9. Code status: The patient is full code. 10. DVT prophylaxis: The patient has been ordered Eliquis by the ortho team. TIME SPENT: Approximately 40 minutes were spent on this consultation, greater than half the time was spent with the patient obtaining my history, performing physical exam, and reviewing my plan of care. This case has been reviewed with my attending, Dr. Kimball, who is in agreement with my plan of care. Reviewed by ELHAM SPANGLER NP 02/24/19 @ [id number]/[facility] #: [id number] SHANE
[2019-02-22] MEDS: oxyCODONE TAB* 5 MG TAB PO PRN (23:47)
[2019-02-23] MEDS: ceFAZolin 1 GM ADVAN(*) 1 GM in NS 0.9% 50 ML* 50 ML IVPB SCH ×2 (02:54→10:40)
[2019-02-23] MEDS: oxyCODONE/Acetamin 5/325 MG* TAB PO PRN ×3 (05:39→17:30)
[2019-02-23] MEDS ORDERED: Levothyroxine TAB* 100 MCG TAB PO SCH (06:00)
[2019-02-23] MEDS: Acetaminophen TAB* 325 MG PO SCH ×2 (06:27→12:01)
[2019-02-23 07:00] LABS: Hematocrit 37 % (35-47); Hemoglobin 12.2 g/dL (12.0-16.0); Mean Platelet Volume 8.3 fL (7.4-10.4); Platelet Count 283 10^3/uL (150-450)
[2019-02-23 07:12] LABS: BUN/Creatinine Ratio 13.3 (8-20); Calcium 8.9 mg/dL (8.6-10.3); EGFR African American 86.4 (>60); EGFR Non-African American 71.4 (>60)
[2019-02-23] MEDS: Docusate CAP* 100 MG PO SCH (07:42)
[2019-02-23] MEDS: Magnesium Hydroxide LIQ* 30 ML UDC PO SCH (07:42)
[2019-02-23] MEDS: Mometasone/Formoter 200/5 MDI INH SCH (07:42)
[2019-02-23] MEDS: oxyCODONE TAB* 5 MG TAB PO PRN ×2 (08:07→13:44)
[2019-02-23] MEDS ORDERED: POTASSIUM 99 MG PO SCH (09:00)
[2019-02-23] MEDS ORDERED: Lisinopril/HCTZ 20/25(NF) TAB PO SCH (09:00)
[2019-02-23] MEDS ORDERED: Lisinopril TAB* 10 MG PO SCH (09:00)
[2019-02-23] MEDS ORDERED: PHENTERMINE HCL 37.5 MG PO SCH (09:00)
[2019-02-23] MEDS ORDERED: Escitalopram * 10 MG TAB PO SCH (09:00)
[2019-02-23] MEDS ORDERED: Hydrochlorothiazide TAB* 25 MG PO SCH (09:00)
[2019-02-23] MEDS ORDERED: Apixaban* 2.5 MG TAB PO SCH (09:00)
--- NOTE | 2019-02-23 11:08 | DS ---
Orthopedic Discharge Summary - Discharge Summary Date of Admission:02/22/19 Date of Discharge: 02/23/19 Date of Surgery: 02/22/19 Attending Orthopedic Provider: Dr. Guzmán Pre-operative Diagnosis: Degenerative arthritis left knee Operative Procedure: Left toal knee arthroplasty Disposition of Patient: Home Condition of Patient: stable History: DICK RIVAS is a 53 year old F with years of increasingly severe left knee pain. Patient has failed conservative management and has elected to undergo a lweft total knee replacement Hospital Course: DICK was admitted to [facility] on 02/22/19. Patient underwent a left total knee replacement without complication followed by a brief recovery in PACU and transfer to the Short Stay Surgical Unit in stable condition. Our hospitalist service, physical therapy and occupational therapy also participated in this patients care. Post-op day 1: patient was alert and in no acute distress. Dressing was clean, dry and intact. Operative extremity dorsiflexion and plantarflexion intact, sensation intact to light touch distally, DP2+. dressing was changed, incision was clean, dry and intact. Patient was deemed to be medically and orthopedically stable for discharge. Physical therapy goals were met. Home Medications Medication Instructions Recorded Confirmed Type Levothyroxine TAB* [Synthroid 100 100 mcg PO QAM 10/06/17 02/22/19 History MCG TAB*] Cholecalciferol (Vitamin D3) 2,000 unit PO DAILY 11/02/18 02/22/19 History [Vitamin D3] Desloratidine (NF) [Clarinex (NF)] 5 mg PO QAM 11/02/18 02/22/19 History Escitalopram * [Lexapro 10 mg (NF)] 10 mg PO QAM 11/02/18 02/22/19 History Lisinopril/HCTZ 20/25(NF) 1 tab PO DAILY 11/02/18 02/22/19 History [Zestoretic 20/25(NF)] Multivitamins/Minerals TAB* 1 tab PO QAM 11/02/18 02/22/19 History [Theragran/minerals TAB*] Phentermine HCl 37.5 mg PO QAM 11/02/18 02/22/19 History Potassium 99 mg PO QAM 11/02/18 02/22/19 History Vitamin B Complex [Super B-50 1 cap PO QAM 11/02/18 02/22/19 History Complex] Albuterol inh POWDER (NF) [Proair 1 puff INH Q6HR PRN 02/09/19 02/22/19 History Respiclick] Budesonide/Formote 160/4.5(NF) 2 puff INH BID 02/09/19 02/22/19 History [Symbicort 160/4.5 (NF)] Apixaban* [Eliquis*] 2.5 mg PO BID #60 tab 02/23/19 Rx Docusate CAP* [Colace Cap*] 100 mg PO BID cap 02/23/19 Rx oxyCODONE/Acetamin 5/325 MG* 1 - 2 tab PO Q4H PRN #56 tab MDD 8 02/23/19 Rx [Percocet 5/325 TAB*] Eliquis BID for 1 month post op WBAT LLE Percocet for pain as above Follow up 10-14 days in office with Dr. Guzmán [facility] [place] pharm for post op meds
[2019-02-23 12:02] VITALS: BP 122/67
[2019-02-25] MEDS ORDERED: Scopolamine PATCH Remove* 1 NOTE MISC PATCH OFF SCH (06:00)
== END 2019-02-23 18:50 | disposition home health service (06) | DRG 302 ==
LOC: OR 08:14 → OBSVTOIN 15:08 → SSU 15:08
PROVIDERS: ADMIT Orthopaedic Surgery Adult Reconstructive Orthopaedic Surgery; ATTEND Orthopaedic Surgery Adult Reconstructive Orthopaedic Surgery
PROC: 0SRD069 Replacement of Left Knee Joint with Oxidized Zirconium on Polyethylene Synthetic Substitute, Cemented, Open Approach (ICD-10-PCS; principal; 2019-02-22 11:00)
DX: M17.12 Unilateral primary osteoarthritis, left knee (principal); J67.9 Hypersensitivity pneumonitis due to unspecified organic dust; Z68.41 Body mass index [BMI] 40.0-44.9, adult; I10 Essential (primary) hypertension; E03.9 Hypothyroidism, unspecified; E11.9 Type 2 diabetes mellitus without complications; M25.462 Effusion, left knee; E66.9 Obesity, unspecified; F32.9 Major depressive disorder, single episode, unspecified; M25.762 Osteophyte, left knee; J45.909 Unspecified asthma, uncomplicated; F41.9 Anxiety disorder, unspecified; M10.9 Gout, unspecified; Z82.5 Family history of asthma and other chronic lower respiratory diseases; Z90.710 Acquired absence of both cervix and uterus; Z90.49 Acquired absence of other specified parts of digestive tract; Z98.51 Tubal ligation status; Z87.891 Personal history of nicotine dependence; Z88.5 Allergy status to narcotic agent; Z98.84 Bariatric surgery status; Z82.49 Family history of ischemic heart disease and other diseases of the circulatory system; Z82.61 Family history of arthritis; Z80.9 Family history of malignant neoplasm, unspecified
CPT/HCPCS: 36415; 80048; 85014; 85018; 85049; 94640; A9270-GY; J0690; J0780; J1100; J1170; J2250; J2405; J2704; J2765; J2795; J3010; J3490

== ENCOUNTER → 2019-06-21 | Day surgery (SDC) | payer BC ==
[~2019-06-21] MED LIST changes: -Acetaminophen TAB* 325 MG PO ONE; +Bupivacaine 0.5%* 50 ML MDV VIAL ONE; -Famotidine TAB* 20 MG PO ONE; -Gabapentin CAP(*) 300 MG PO ONE; +Hydrochlorothiazide TAB* 25 MG PO ONE; +Labetalol IV* 5 MG/ML 20 ML VIAL ONE; +Lidocaine 1% INJ* 10 MG/ML 30 ML SDV ONE; +Lidocaine 2% PF* 10 ML AMP ONE; +Lisinopril TAB* 10 MG PO ONE; -Metoclopramide IV* 5 MG/ML 2 ML VIAL IV SLOW PU ONE; +Midazolam* 1 MG/ML 2 ML VIAL (2 MG) ONE; +Midazolam* 1 MG/ML 5 ML VIAL (5 MG) ONE; +Naloxone* 0.4 MG/ML 1 ML VIAL IV PRN; +Propofol* 10 MG/ML 20 ML BTL ONE; -Scopolamine 1.5 mg* PATCH TRANSDERM SCH; -Tranexamic Acid 1,000 MG in NS 0.9% 50 ML* (outpatient use) IV SCH; +ceFAZolin 2 GM in NS PREMIX(*) 2 GM/100 ML BAG IVPB ONE; -celeCOXIB CAP* 200 MG PO ONE; +fentaNYL* 50 MCG/ML 2 ML VIAL (100 MCG VIAL) ONE; +oxyCODONE TAB* 5 MG TAB ONE
--- NOTE | 2019-06-21 08:12 | OP ---
Operative Report - Blank - Operative Report Date of Operation: 06/21/19 Note: PATIENT: Meghan Estevez DATE OF : 1965 DATE OF SURGERY: 06/21/2019 SURGEON: Meet Finley MD QUALITY COORDINATOR: DOLLY Huber, whos assistance was necessary for positioning, retraction, help with instrumentation, and closure. ANESTHESIOLOGIST: Dr. Mares PREOPERATIVE DIAGNOSIS: Left foot hallux rigidus POSTOPERATIVE DIAGNOSIS: Left foot hallux rigidus OPERATION: Left foot first metatarsophalangeal joint cheilectomy ANESTHESIA: MAC IMPLANTS: none TOURNIQUET TIME: Less than 1 hour with an ankle Esmarch tourniquet SPECIMENS: None ESTIMATED BLOOD LOSS: Minimal COMPLICATIONS: none STATUS: Stable from the operating room to the recovery room and then home. INDICATIONS FOR PROCEDURE: Meghan has had persistent pain and limited dorsiflexion at the 1st MTP joint which makes it difficult to walk. Both operative and non-operative treatment alternatives were reviewed. Further, the nature and risks of surgery were reviewed in careful detail, in the office as well as the pre-operative holding area. Our discussions regarding the risks of surgery included, but were not limited to, infection, wound problems, nerve injury, neuroma, RSD, persistent symptoms, blood clot, fracture, need for further surgery, failure of the surgery , and even the remote chance of catastrophic complication. DESCRIPTION OF PROCEDURE: The patient was seen in the preoperative holding unit and informed written consent was obtained. The appropriate extremity was marked. The patient was then brought to the operating room and carefully positioned on the operating room table. Anesthesia was induced. All bony prominences were padded with great care. A chlorhexidine based pre-scrub was performed followed by a chloraprep prep and drape in standard sterile fashion. A surgical safety pause was then conducted in which we confirmed the appropriate patient, extremity, planned procedure, availability of equipment, indication and administration of prophylactic antibiotics, and DVT prophylaxis in the form of a compression boot on the non-surgical extremity. I began with an Esmarch exsanguination of the limb and placement of an ankle Esmarch tourniquet. I then made an approximately 4 cm incision overlying the first metatarsophalangeal joint dorsally. We mobilized the extensor hallucis longus tendon laterally and then came sharply through the dorsal capsule in line with the skin incision. We then exposed the metatarsal head, with care taken to protect the collateral ligaments. Inflamed synovium was excised with a 15 blade scalpel. I utilized an osteotome to remove approximately 25% of the dorsal first metatarsal head and in line with the first metatarsal shaft, removing the dorsal spur. This was contoured at the medial and lateral aspects of the osteotomy in order to prevent any sharp bony prominences. I then excised the dorsal aspect of the proximal phalanx at the joint with a rongeur. There were no spurs left or inflamed invaginating synovium. I was able to range the joint from 30 degrees plantarflexion to 45 degrees of dorsiflexion without any limitation or crepitus. The wounds were copiously irrigated and meticulously closed in layers utilizing 3-0 Monocryl and 3-0 nylon. A sterile dressing was then applied. The patient was then awakened from anesthesia and transferred to the recovery room in stable condition. There were no complications. All needle and sponge counts were correct at the end of the case. ATTESTATION: I attest I was present and scrubbed and performed the critical portions of the procedure myself. POSTOPERATIVE PLAN: The patient will remain heel weightbearing for anticipated duration of 2 weeks. Followup will be in 2 weeks for likely suture removal and Steri-Strip application.
[2019-06-21 08:50] VITALS: BP 145/93
== END | disposition home or self-care (01) ==
LOC: OR 05:36
PROVIDERS: ATTEND Orthopaedic Surgery
DX: M20.22 Hallux rigidus, left foot (principal); E11.9 Type 2 diabetes mellitus without complications; I10 Essential (primary) hypertension; E03.9 Hypothyroidism, unspecified; Z87.891 Personal history of nicotine dependence
CPT/HCPCS: 76000; A9270-GY; C1776; J0690; J2001; J2250; J2704; J3010; J3490